=== PATIENT | female | born 1950 | race Caucasian/White ===

== ENCOUNTER 2020-10-15 13:53 | Inpatient (IN) ==
--- OUTSIDE RECORDS SUMMARY | 2020-10-15 13:55 | External Medical Summary | Continuity of Care Document ---
:1950 Author Name Ann MSerenity Address Unavailable Unavailable , Care Team Providers Name Role Phone Unavailable Unavailable Unavailable Madison ALLEN Unavailable Unavailable Assessments Assessed Problems:Encounter for preventive health examinationDyslipidemia CataractVenous insufficiencySpecial screening for malignant neoplasm of colon Postmenopausal statusRisk and functional assessment Problems Venous insufficiency (459.81) (I87.2) Risk and functional assessment (V82.9) (Z13.9) Postmenopausal status (V49.81) (Z78.0) Special screening for malignant neoplasm of colon (V76.51) ( Z12.11) Cataract (366.9) (H26.9) Dyslipidemia (272.4) (E78.5) Allergies and Adverse Reactions methohexital (Allergy) pentazocine (Allergy) Talwin SOLN (Allergy) Medications Biotin 1000 MCG Oral Tablet; TAKE DIRECTED. , M.D. Refills: 0 Vitamin D3 50 MCG (2000 UT) Oral Capsule; TAKE 1 CAPSULE Geno ly , M.D. Refills: 0 Probiotic Oral Capsule; USE DIRECTED. , M.D. Refills: 0 Paulina 3 1200 MG Oral Capsule; TAKE DIRECTED. , M.D. Refills: 0 Exarmnfrfsm-Jytujydqamh-Juy C 5262-8969-73 MG/30ML Oral Liqu id , M.D. Refills: 0 CVS Vitamin D 2000 UNIT CAPS; TAKE 1 CAPSULE Daily , M.D. Refills: 0 Procedures Procedures not documented Immunizations Immunizations not documented Family History Unknown Family Member No pertinent family history (V49.89) (Z78.9) Status: Active Comments: Family History Plan of Treatment Planned Observations Planned Goals not documented Results No Known Results Results not documented
--- OUTSIDE RECORDS SUMMARY | 2020-10-15 13:55 | External Medical Summary | Continuity of Care Document ---
:1950 Author Name Ann MSerenity Address Unavailable Unavailable , Care Team Providers Name Role Phone Unavailable Unavailable Unavailable Madison ALLEN Unavailable Unavailable Assessments Assessed Problems:Encounter for preventive health examinationDyslipidemia CataractVenous insufficiencySpecial screening for malignant neoplasm of colon Postmenopausal statusRisk and functional assessment Problems Dyslipidemia (272.4) (E78.5) Cataract (366.9) (H26.9) Special screening for malignant neoplasm of colon (V76.51) ( Z12.11) Postmenopausal status (V49.81) (Z78.0) Risk and functional assessment (V82.9) (Z13.9) Venous insufficiency (459.81) (I87.2) Allergies and Adverse Reactions methohexital (Allergy) pentazocine (Allergy) Talwin SOLN (Allergy) Medications Biotin 1000 MCG Oral Tablet; TAKE DIRECTED. , M.D. Refills: 0 Vitamin D3 50 MCG (2000 UT) Oral Capsule; TAKE 1 CAPSULE Geno ly , M.D. Refills: 0 Probiotic Oral Capsule; USE DIRECTED. , M.D. Refills: 0 Weldon 3 1200 MG Oral Capsule; TAKE DIRECTED. , M.D. Refills: 0 Civcwpwkwwk-Xfcfidbghkh-Tka C 4895-7875-49 MG/30ML Oral Liqu id , M.D. Refills: [...]
[2020-10-15] MEDS ORDERED: SODIUM CHLORIDE 0.9% 500 ML IV SCH (14:00)
[2020-10-15] MEDS ORDERED: SODIUM CHLORIDE 0.9% 1000ML 1,000 ML IV SCH (14:00)
--- NOTE | 2020-10-15 14:08 | Emergency Department Note ---
Impression & Plan Hyperglycemia, Hypokalemia, Acute UTI (urinary tract infection), SOB (shortness of breath), Elevated d-dimer ED Provider Note INFORMANT: Patient ED PROVIDER(S): Renato Muñoz MD CHIEF COMPLAINT: Hyperglycemia PLAN: Disposition: Admitted Condition: Good Outpatient prescription management: none Referral: None MEDICAL DECISION MAKING: Patient presented complaining of hyperglycemia. She also noted shortness of breath. Her ECG showed a normal sinus rhythm. Chest x-ray was unremarkable. Patient had an unremarkable CBC but chemistry panel did reveal hyperglycemia and hypokalemia. She had a urinalysis performed and there was concerns for UTI. The patient was treated with IV Rocephin. She was given oral potassium. The patient was hydrated as well. She was given IV insulin. The patient does not have insulin treatment at home. The patient had a D-dimer performed and it was very elevated. She underwent CT imaging which did not reveal any evidence of acute intrathoracic pathology including pulmonary embolism. Given the findings I discussed further management in the hospital. I [facility] the [facility] The patient will be admitted for further management. Triage Nursing notes reviewed and agree them. Vital Signs: reviewed and remarkable for tachycardia Differential diagnosis: Infection, dehydration, metabolic abnormality, hypo/hyperglycemia, electrolyte disturbance, anemia, hypoxia, cardiac sources, intracerebral event, toxicologic, neurologic, as well as other pathologies. Diagnostics interpreted by me: ECG: Twelve-lead ECG reveals a normal sinus rhythm at 90 bpm. Left atrial enlargement. Poor R wave progression. No ST elevation or depression. Unspecific ST. Normal axis and QRS. Cardiac Monitoring:Cardiac monitoring ordered by me: The patient was placed on continuous cardiac monitoring and observed. It revealed a sinus tachycardia rhythm at 104 beats per minute without ectopy or evidence of dysrhythmia. Imaging studies: Chest x-ray. Findings: A chest x-ray was performed and revealed no pneumothorax, effusion, infiltrate, pulmonary edema, free air under the diaphragm, or wide mediastinum. Impression: No acute disease. CT PE study did not reveal any evidence of pulmonary embolism or acute pathology. I refer you to the EMR for further details. Consultation(s): [facility] service HPI: The patient is a 70 year old female who presents to the Emergency Room with complaints of hyperglycemia. This started a few days ago and is worsening. BSG was 428 before coming to the ED. The patient also notes the following associated symptoms, fevers, dark urine, SOB. The patient has tylenol relieving factors. Current pain is rated as 0/10. Pt had Covid Dec . Pt denies LOC, headache, diaphoresis, visual changes, neck pain, chest pain, nausea, vomiting, abdominal pain, back pain, melena, hematochezia, numbness, weakness, lymphadenopathy, rash, or other complaints. ROS: See above HPI for pertinent positives & negatives. A total of 10 systems reviewed and were otherwise negative. PAST MEDICAL HISTORY:See Below , COVID, DM PAST SURGICAL HISTORY:See Below, FAMILY HISTORY:See Below SOCIAL HISTORY:See Below, No tobacco HOME MEDICATIONS:See Below ALLERGIES:See Below VITALS:See Below PHYSICAL EXAMINATION: GENERAL: Awake, alert, uncomfortable-appearing, in no distress HENT: Normocephalic, atraumatic. Oropharynx unremarkable. EYES: Normal conjunctiva. Sclera non-icteric. NECK: Inspection normal. Non-tender. Supple. No nuchal rigidity. FROM. No masses. RESPIRATORY: Clear to auscultation. No wheezes. No rales. Normal respiratory effort. CARDIAC: Borderline rate. Normal rhythm. No murmurs. No rubs. Extremities warm and well perfused. Pulses equal. No JVD. GI: Soft, non-distended. No tenderness to palpation. No rebound or guarding. No masses. RECTAL: Deferred. MUSCULOSKELETAL: Atraumatic. Chest examination reveals no tenderness. The back is symmetrical on inspection without obvious abnormality. There is no CVA tenderness to palpation. No joint edema. LOWER EXTREMITIES: Calves are equal size bilaterally and non-tender. No edema. No discoloration. NEURO: Normal sensorium. No sensory or motor deficits noted. SKIN: No rash or jaundice noted. Renato Muñoz MD Past Med/Surg History Social History Smoking Status: Former smoker Feels Safe at Home: Yes Allergies Allergies Allergy/AdvReac Type Severity Reaction Status Date / Time aspirin Allergy Severe HALLUCINATI Unverified 10/15/20 14:56 ONS naloxone Allergy Severe HALLUCINATI Verified 10/15/20 14:56 ONS pentazocine Allergy Severe HEADACHE Unverified 10/15/20 14:56 SODIUM BREVATOL Allergy Intermediate MIGRAINES Uncoded 10/15/20 14:56 AND VISUAL DISTURBANCES Home Meds Home Medications Medication Instructions Recorded Confirmed acetaminophen [Tylenol Extra 500 mg PO Q6H PRN 10/15/20 10/15/20 Strength] atorvastatin 20 mg PO HS 10/15/20 10/15/20 cholecalciferol (vitamin D3) 50 mcg PO DAILY 10/15/20 10/15/20 famotidine 20 mg PO DAILY 10/15/20 10/15/20 ibuprofen [Advil] 400 mg PO Q6H PRN 10/15/20 10/15/20 magnesium oxide 400 mg PO DAILY PRN 10/15/20 10/15/20 metformin 500 mg PO BID 10/15/20 10/15/20 metoprolol succinate 25 mg PO DAILY 10/15/20 10/15/20 zqydkejr-iic-uupb-FA-lutein 1 tab PO DAILY 10/15/20 10/15/20 [Centrum Silver Women] Results & Data (ED) Vital Signs Vital Signs - 24 hr 10/15/20 13:56 10/15/20 14:24 10/15/20 14:32 Temperature 36.6 C Temperature Source Temporal Artery Scan Pulse Rate 97 H 95 H 94 H Pulse Rate from SpO2 Sensor 94 H Respiratory Rate 20 20 19 Blood Pressure 148/86 H 148/83 H Blood Pressure Mean 106 104 Pulse Oximetry 95 95 94 Oxygen Delivery Method Room Air Room Air Sepsis Recent Fever Within 48 Hours Yes Sepsis New/Unexplained Change in Mental Status No Sepsis Action Taken by Nursing No Action Required 10/15/20 14:39 10/15/20 15:00 10/15/20 15:01 Temperature Temperature Source Pulse Rate 93 H 92 H 93 H Pulse Rate from SpO2 Sensor 95 H 91 H 92 H Respiratory Rate 19 20 20 Blood Pressure 150/88 H Blood Pressure Mean 108 Pulse Oximetry 96 95 96 Oxygen Delivery Method Sepsis Recent Fever Within 48 Hours Sepsis New/Unexplained Change in Mental Status Sepsis Action Taken by Nursing 10/15/20 15:31 10/15/20 16:00 10/15/20 16:30 Temperature Temperature Source Pulse Rate Pulse Rate from SpO2 Sensor 96 H 88 91 H Respiratory Rate Blood Pressure Blood Pressure Mean Pulse Oximetry 94 94 93 Oxygen Delivery Method Sepsis Recent Fever Within 48 Hours Sepsis New/Unexplained Change in Mental Status Sepsis Action Taken by Nursing 10/15/20 17:00 10/15/20 17:01 10/15/20 17:30 Temperature Temperature Source Pulse Rate 94 H 91 H 96 H Pulse Rate from SpO2 Sensor 96 H Respiratory Rate 20 20 28 H Blood Pressure 152/91 H 145/89 H Blood Pressure Mean 111 107 Pulse Oximetry 93 Oxygen Delivery Method Sepsis Recent Fever Within 48 Hours Sepsis New/Unexplained Change in Mental Status Sepsis Action Taken by Nursing 10/15/20 18:00 10/15/20 18:01 10/15/20 18:30 Temperature Temperature Source Pulse Rate 99 H 97 H 101 H Pulse Rate from SpO2 Sensor 97 H 96 H 97 H Respiratory Rate 20 20 24 Blood Pressure 138/83 145/68 H Blood Pressure Mean 101 93 Pulse Oximetry 96 96 95 Oxygen Delivery Method Sepsis Recent Fever Within 48 Hours Sepsis New/Unexplained Change in Mental Status Sepsis Action Taken by Nursing 10/15/20 18:31 Temperature Temperature Source Pulse Rate 104 H Pulse Rate from SpO2 Sensor 103 H Respiratory Rate 24 Blood Pressure Blood Pressure Mean Pulse Oximetry 97 Oxygen Delivery Method Sepsis Recent Fever Within 48 Hours Sepsis New/Unexplained Change in Mental Status Sepsis Action Taken by Nursing Laboratory Data Result diagrams: 10/15/20 14:23 10/15/20 14:23 Lab Results 10/15/20 10/15/20 10/15/20 Range/Units 14:23 14:23 14:25 WBC 9.08 (4.8-10.8) K/uL RBC 4.40 (4.2-5.4) M/uL Hgb 12.9 (12.0-16.0) g/dL Hct 36.6 L (37-47) % MCV 83.2 (80-100) fL MCH 29.3 (25-34) pg MCHC 35.2 (32-36) g/dL RDW Std Deviation 40.3 (36.4-46.3) fL RDW Coeff of Negrita 13.3 (11.5-14.5) % Plt Count 145 (130-400) K/uL MPV 11.1 H (7.4-10.4) fL Immature Gran % (Auto) 0.3 % Neut % (Auto) 85.8 % Lymph % (Auto) 9.4 % [place] % (Auto) 4.0 % Eos % (Auto) 0.4 % Baso % (Auto) 0.1 % Neut # (Auto) 7.79 H (1.4-6.5) K/uL Lymph # (Auto) 0.85 L (1.2-3.4) K/uL [place] # (Auto) 0.36 (0.11-0.59) K/uL Eos # (Auto) 0.04 (0-0.5) K/uL Baso # (Auto) 0.01 (0-0.2) K/uL Immature Gran # (Auto) 0.03 H (0.00-0.02) K/uL D-Dimer 3950 H* (0-500) ug/L FEU Sodium 132 L (136-145) mmol/L Potassium 3.1 L (3.5-5.1) mmol/L Chloride 95 L (98-107) mmol/L Carbon Dioxide 29 (21-32) mmol/L Anion Gap 8.0 (3-11) BUN 37 H (7-18) mg/dl Creatinine 1.34 H (0.6-1.2) mg/dl Est Cr Clr Drug Dosing 40.8 ml/min Est GFR ( Amer) 46.1 Est GFR (Non-Af Amer) 39.8 BUN/Creatinine Ratio 27.7 H (10-20) Glucose 334 H* (70-99) mg/dl POC Glucose (70-99) mg/dl Calcium 8.8 (8.5-10.1) mg/dl Magnesium 2.2 (1.8-2.4) mg/dl Total Bilirubin 1.5 H (0.2-1) mg/dl AST 40 H (15-37) U/L ALT 55 (12-78) U/L Alkaline Phosphatase 121 H (45-117) U/L Total Creatine Kinase 50 (26-192) U/L Troponin I < 0.015 (0-0.045) ng/ml Total Protein 7.6 (6.4-8.2) gm/dl Albumin 2.8 L (3.4-5.0) gm/dl Globulin 4.8 H (2.5-4.0) gm/dl Albumin/Globulin Ratio 0.6 L (0.9-2) Beta-Hydroxybutyric Acd (0.2-2.81) mg/dl TSH 1.140 (0.300-4.500) uIu/ml Specimen Hemolysis Urine Color Urine Appearance (Clear) Urine pH (4.5-7.5) Ur Specific [place] (1.000-1.030) Urine Protein (Negative) Urine Glucose (UA) (Negative) Urine Ketones (Negative) Urine Blood (Negative) Urine Nitrite (Negative) Urine Bilirubin (Negative) Urine Urobilinogen (Negative) Ur Leukocyte Esterase (Negative) Urine WBC (Auto) (0-5) /hpf Urine RBC (Auto) (0-4) /hpf U Hyaline Cast (Auto) (0-5) /lpf U Epithel Cells (Auto) (0-5) /lpf Urine Bacteria (Auto) (Negative) COVID-19 Eval Order SARS-CoV-2, RNA, NAAT (NEGATIVE) 10/15/20 10/15/20 10/15/20 Range/Units 14:25 16:13 17:48 WBC (4.8-10.8) K/uL RBC (4.2-5.4) M/uL Hgb (12.0-16.0) g/dL Hct (37-47) % MCV (80-100) fL MCH (25-34) pg MCHC (32-36) g/dL RDW Std Deviation (36.4-46.3) fL RDW Coeff of Negrita (11.5-14.5) % Plt Count (130-400) K/uL MPV (7.4-10.4) fL Immature Gran % (Auto) % Neut % (Auto) % Lymph % (Auto) % [place] % (Auto) % Eos % (Auto) % Baso % (Auto) % Neut # (Auto) (1.4-6.5) K/uL Lymph # (Auto) (1.2-3.4) K/uL [place] # (Auto) (0.11-0.59) K/uL Eos # (Auto) (0-0.5) K/uL Baso # (Auto) (0-0.2) K/uL Immature Gran # (Auto) (0.00-0.02) K/uL D-Dimer (0-500) ug/L FEU Sodium (136-145) mmol/L Potassium (3.5-5.1) mmol/L Chloride (98-107) mmol/L Carbon Dioxide (21-32) mmol/L Anion Gap (3-11) BUN (7-18) mg/dl Creatinine (0.6-1.2) mg/dl Est Cr Clr Drug Dosing ml/min Est GFR ( Amer) Est GFR (Non-Af Amer) BUN/Creatinine Ratio (10-20) Glucose (70-99) mg/dl POC Glucose 281 H (70-99) mg/dl Calcium (8.5-10.1) mg/dl Magnesium (1.8-2.4) mg/dl Total Bilirubin (0.2-1) mg/dl AST (15-37) U/L ALT (12-78) U/L Alkaline Phosphatase (45-117) U/L Total Creatine Kinase (26-192) U/L Troponin I (0-0.045) ng/ml Total Protein (6.4-8.2) gm/dl Albumin (3.4-5.0) gm/dl Globulin (2.5-4.0) gm/dl Albumin/Globulin Ratio (0.9-2) Beta-Hydroxybutyric Acd 2.00 (0.2-2.81) mg/dl TSH (0.300-4.500) uIu/ml Specimen Hemolysis Urine Color [place] Urine Appearance Cloudy A (Clear) Urine pH 5.0 (4.5-7.5) Ur Specific [place] 1.016 (1.000-1.030) Urine Protein 2+ H (Negative) Urine Glucose (UA) 1+ H (Negative) Urine Ketones Negative (Negative) Urine Blood 3+ H (Negative) Urine Nitrite Negative (Negative) Urine Bilirubin 1+ H (Negative) Urine Urobilinogen Negative (Negative) Ur Leukocyte Esterase 2+ H (Negative) Urine WBC (Auto) >30 H (0-5) /hpf Urine RBC (Auto) >30 H (0-4) /hpf U Hyaline Cast (Auto) 1-5 (0-5) /lpf U Epithel Cells (Auto) 10-20 H (0-5) /lpf Urine Bacteria (Auto) 1+ H (Negative) COVID-19 Eval Order SARS-CoV-2, RNA, NAAT (NEGATIVE) 10/15/20 10/15/20 10/15/20 Range/Units 18:44 18:44 18:46 WBC (4.8-10.8) K/uL RBC (4.2-5.4) M/uL Hgb (12.0-16.0) g/dL Hct (37-47) % MCV (80-100) fL MCH (25-34) pg MCHC (32-36) g/dL RDW Std Deviation (36.4-46.3) fL RDW Coeff of Negrita (11.5-14.5) % Plt Count (130-400) K/uL MPV (7.4-10.4) fL Immature Gran % (Auto) % Neut % (Auto) % Lymph % (Auto) % [place] % (Auto) % Eos % (Auto) % Baso % (Auto) % Neut # (Auto) (1.4-6.5) K/uL Lymph # (Auto) (1.2-3.4) K/uL [place] # (Auto) (0.11-0.59) K/uL Eos # (Auto) (0-0.5) K/uL Baso # (Auto) (0-0.2) K/uL Immature Gran # (Auto) (0.00-0.02) K/uL D-Dimer (0-500) ug/L FEU Sodium (136-145) mmol/L Potassium (3.5-5.1) mmol/L Chloride (98-107) mmol/L Carbon Dioxide (21-32) mmol/L Anion Gap (3-11) BUN (7-18) mg/dl Creatinine (0.6-1.2) mg/dl Est Cr Clr Drug Dosing ml/min Est GFR ( Amer) Est GFR (Non-Af Amer) BUN/Creatinine Ratio (10-20) Glucose (70-99) mg/dl POC Glucose 228 H (70-99) mg/dl Calcium (8.5-10.1) mg/dl Magnesium (1.8-2.4) mg/dl Total Bilirubin (0.2-1) mg/dl AST (15-37) U/L ALT (12-78) U/L Alkaline Phosphatase (45-117) U/L Total Creatine Kinase (26-192) U/L Troponin I (0-0.045) ng/ml Total Protein (6.4-8.2) gm/dl Albumin (3.4-5.0) gm/dl Globulin (2.5-4.0) gm/dl Albumin/Globulin Ratio (0.9-2) Beta-Hydroxybutyric Acd (0.2-2.81) mg/dl TSH (0.300-4.500) uIu/ml Specimen Hemolysis Urine Color Urine Appearance (Clear) Urine pH (4.5-7.5) Ur Specific [place] (1.000-1.030) Urine Protein (Negative) Urine Glucose (UA) (Negative) Urine Ketones (Negative) Urine Blood (Negative) Urine Nitrite (Negative) Urine Bilirubin (Negative) Urine Urobilinogen (Negative) Ur Leukocyte Esterase (Negative) Urine WBC (Auto) (0-5) /hpf Urine RBC (Auto) (0-4) /hpf U Hyaline Cast (Auto) (0-5) /lpf U Epithel Cells (Auto) (0-5) /lpf Urine Bacteria (Auto) (Negative) COVID-19 [facility] SARS-[facility]-2, RNA, NAAT NEGATIVE (NEGATIVE) Administered Medications Sodium Chloride (Nss 1000ml) 1,000 mls @ 125 mls/hr IV .Q8H GELA Stop: 10/15/20 21:59 Last Admin: 10/15/20 14:24 Dose: 125 mls/hr Documented by: [id number] Discontinued Medications Sodium Chloride (Nss) 500 mls @ 999 mls/hr IV .Q31M GELA Stop: 10/15/20 14:30 Last Infusion: 10/15/20 15:16 Dose: 0 mls/hr Documented by: [id number] Admin: 10/15/20 14:24 Dose: 999 mls/hr Documented by: [id number] Ceftriaxone Sodium (Rocephin) 2,000 mg in 70 mls @ 140 mls/hr IV NOW STA Stop: 10/15/20 15:40 Last Infusion: 10/15/20 17:37 Dose: 0 mls/hr Documented by: [id number] Admin: 10/15/20 15:31 Dose: 140 mls/hr Documented by: [id number] Insulin Human Regular (Novolin-R Insulin Per Unit Charge) 6 units IV NOW STA Stop: 10/15/20 17:13 Last Admin: 10/15/20 17:49 Dose: 6 units Documented by: [id number] Cosigned by: [id number] Ioversol (Optiray 320 125ml) 120 ml IV ONCE ONE Stop: 10/15/20 16:52 Last Admin: 10/15/20 16:52 Dose: 120 ml Documented by: [id number] Potassium Chloride (Potassium Chloride Crtab 20 Meq Tabcr) 40 meq PO NOW STA Stop: 10/15/20 17:13 Last Admin: 10/15/20 17:49 Dose: 40 meq Documented by: [id number] Potassium Chloride (Potassium Chloride Crtab 20 Meq Tabcr) 40 meq PO NOW STA Stop: 10/15/20 19:02 Last Admin: 10/15/20 19:17 Dose: Not Given Documented by: [id number] Discharge Plan Visit Data Chief Complaint: Hyperglycemia Stated Complaint: ELEVATED BLOODSUGAR ED Provider: Renato Muñoz Discharge Problem: Hyperglycemia, Hypokalemia, Acute UTI (urinary tract infection), SOB (shortness of breath), Elevated d-dimer Discharge Instructions Interventions: ED Discharge Assessment Last Done: 10/15/20 19:37 Forms Stand Alone Forms: [facility] Prescriptions Prescriptions: No Action metoprolol succinate 25 mg tablet extended release 24 hr 25 mg PO DAILY RF: 0 metformin 500 mg tablet 500 mg PO BID RF: 0 atorvastatin 20 mg tablet 20 mg PO HS RF: 0 acetaminophen [Tylenol Extra Strength] 500 mg Tablet 500 mg PO Q6H PRN (Reason: Fever Or Pain) RF: 0 famotidine 20 mg tablet 20 mg PO DAILY RF: 0 magnesium oxide 400 mg (241.3 mg magnesium) Tablet 400 mg PO DAILY PRN (Reason: Unknown) RF: 0 ibuprofen [Advil] 200 mg Tablet 400 mg PO Q6H PRN (Reason: Fever Or Pain) RF: 0 cholecalciferol (vitamin D3) 50 mcg (2,000 unit) Tablet 50 mcg PO DAILY RF: 0 Centrum Silver Women 8 mg iron-400 mcg-300 mcg Tablet 1 tab PO DAILY RF: 0 glucosamine sulfate [Glucosamine] 500 mg Tablet 500 mg PO BID RF: 0 Referrals Referrals: Ismael Warner DO [Primary Care Provider] -
--- NOTE | 2020-10-15 14:20 | XRay Report ---
SINGLE VIEW CHEST CLINICAL HISTORY: Dyspnea. FINDINGS: An AP, portable, upright chest radiograph is obtained. No prior studies are available for c omparison at the time of dictation. The cardiomediastinal silhouette is unremarkable noting atherosc lerotic calcification of the thoracic aorta. There is bibasilar scarring/atelectasis. No airspace con solidation or large pleural effusion is identified. No pneumothorax is seen. The skeletal structures are osteopenic. The bony thorax is grossly intact. Degenerative change and widening is seen at the le ft acromioclavicular joint. IMPRESSION: No acute cardiopulmonary abnormality. ACT 112: Negative or not required by law. Electronically signed by: Rios Gutierrez M.D. 10/15/2020 2:19 PM
[2020-10-15 14:47] LABS: Basophils # (auto) 0.01 K/uL (0-0.2); Basophils % (auto) 0.1 %; Eosinophils # (auto) 0.04 K/uL (0-0.5); Eosinophils % (auto) 0.4 %; Hematocrit (blood only) 36.6 % (37-47); Hemoglobin 12.9 g/dL (12.0-16.0); Immature Granulocytes # (auto) 0.03 K/uL (0.00-0.02); Immature Granulocytes % (auto) 0.3 %; Lymphocytes # (auto) 0.85 K/uL (1.2-3.4); Lymphocytes % (auto) 9.4 %; Mean Corpuscular Hemoglobin 29.3 pg (25-34); Mean Corpuscular Hgb Conc 35.2 g/dL (32-36); Mean Corpuscular Volume 83.2 fL (80-100); Mean Platelet Volume 11.1 fL (7.4-10.4); Monocytes # (auto) 0.36 K/uL (0.11-0.59); Neutrophils # (auto) 7.79 K/uL (1.4-6.5); Neutrophils % (auto) 85.8 %; Platelet Count 145 K/uL (130-400); RDW Coefficient of Variation 13.3 % (11.5-14.5); RDW Standard Deviation 40.3 fL (36.4-46.3); White Blood Count 9.08 K/uL (4.8-10.8)
[2020-10-15 15:01] LABS: Appearance Urine Cloudy (Clear); Bacteria Urine Automated 1+ (Negative); Blood Urine 3+ (Negative); Color Urine Orange; Glucose Urine UA 1+ (Negative); Ketones Urine Negative (Negative); Leukocyte Esterase Urine 2+ (Negative); Nitrite Urine Negative (Negative); Protein Urine 2+ (Negative); RBC Urine Automated >30 /hpf (0-4); Specific Gravity Urine 1.016 (1.000-1.030); Urobilinogen Urine Negative (Negative); WBC Urine Automated >30 /hpf (0-5)
[2020-10-15 15:03] LABS: Bilirubin Urine 1+ (Negative); D Dimer 3950 ug/L FEU (0-500)
[2020-10-15] MEDS ORDERED: cefTRIAXone SODIUM 2,000 MG/70 ML BAG IV STA (15:11)
[2020-10-15 15:20] LABS: Alanine Aminotransferase 55 U/L (12-78); Albumin Level 2.8 gm/dl (3.4-5.0); Aspartate Aminotransferase 40 U/L (15-37); BUN Creatinine Ratio 27.7 (10-20); Blood Urea Nitrogen 37 mg/dl (7-18); Calcium 8.8 mg/dl (8.5-10.1); Carbon Dioxide 29 mmol/L (21-32); Chloride 95 mmol/L (98-107); Creatinine Clr Calc Pharmacy 40.8 ml/min; Est GFR (African American) 46.1; Est GFR (Non-African American) 39.8; Glucose 334 mg/dl (70-99); Magnesium 2.2 mg/dl (1.8-2.4); Potassium 3.1 mmol/L (3.5-5.1); Sodium 132 mmol/L (136-145)
[2020-10-15 15:24] LABS: Albumin Globulin Ratio 0.6 (0.9-2); Alkaline Phosphatase 121 U/L (45-117); Bilirubin,Total 1.5 mg/dl (0.2-1); Creatine Kinase 50 U/L (26-192); Globulin 4.8 gm/dl (2.5-4.0); Total Protein 7.6 gm/dl (6.4-8.2); Troponin I < 0.015 ng/ml (0-0.045)
[2020-10-15] MEDS ORDERED: OPTIRAY 320 125ml IV ONE (16:51)
[2020-10-15] MEDS ORDERED: POTASSIUM CHLORIDE CRTAB 20 MEQ TABCR PO STA ×2 (17:12→19:01)
[2020-10-15] MEDS ORDERED: NovoLIN-R INSULIN PER UNIT CHARGE IV STA (17:12)
--- NOTE | 2020-10-15 17:24 | CT Scan Report ---
CT ANGIOGRAM OF THE CHEST CLINICAL HISTORY: Cough and dyspnea of several months duration. History of Covid in August 2020. COMPARISON STUDY: Chest x-ray dated 10/15/2020. TECHNIQUE: Following the IV administration of 120 cc of Optiray 320, CT angiogram of the chest was pe rformed from the upper abdomen to the thoracic inlet utilizing the pulmonary embolus protocol. Images are reviewed in the axial, sagittal, and coronal planes. 3-D MIPS images are created and assessed. I V contrast was administered without complication. A dose lowering technique was utilized adhering to the principles of ALARA. CT DOSE: 427.67 mGy.cm FINDINGS: Thyroid: Imaged portions of the thyroid gland are normal in size and attenuation. Thoracic aorta: The thoracic aorta is normal in caliber and demonstrates standard 3-vessel arch anato my. No dissection is seen. Pulmonary vasculature: The pulmonary trunk is normal in caliber. There are no filling defects identif ied in main, lobar, or segmental pulmonary branches to suggest pulmonary embolus. Heart: The heart is normal in size and without pericardial effusion. Lungs and pleural spaces: Evaluation of the lung parenchyma is modestly degraded by motion artifact. The trachea and central airways are clear. There are trace pleural effusions. Foci of subpleural pare nchymal scarring and atelectasis are present at both lung bases. There is no airspace consolidation t ypical for pneumonia. Tiny blebs are noted at the right apex. Mild diffuse peribronchial thickening i s noted. Mediastinum: There is no mediastinal lymphadenopathy. Feli: Clear. Axillae: There is no axillary lymphadenopathy. Upper abdomen: There is a moderate to large hiatal hernia. The liver appears steatotic. Skeletal structures: The skeletal structures are osteopenic. Degenerative change and mild hyperkyphos is is noted in the thoracic spine. No lytic or blastic bony lesions are seen. IMPRESSION: 1. There is no evidence of pulmonary embolus in the main, lobar, or segmental pulmonary arteries. 2. There is no airspace consolidation typical for pneumonia. 3. Foci of subpleural parenchymal scarring and atelectasis are seen at the lung bases. This may repre sent post infectious/inflammatory change. Consider nonemergent pulmonology follow-up. 4. Trace pleural effusions. 5. Mild diffuse peribronchial thickening suggests bronchitis/reactive airway disease. 6. Moderate to large hiatal hernia. 7. Additional findings as above. ACT 112: Negative or not required by law. Electronically signed by: Rios Gutierrez M.D. 10/15/2020 5:22 PM
[2020-10-15] MEDS ORDERED: INSULIN PROTOCOL GOAL RANGE ONE (19:01)
[2020-10-15] MEDS ORDERED: INSULIN REGULAR 250 UNITS in SODIUM CHLORIDE 0.9% 247.5 ML IV SCH (19:01)
[2020-10-15] MEDS ORDERED: MODERATE STRESS LEVEL ONE (19:01)
[2020-10-15] MEDS ORDERED: PHARMACY GLYCEMIC MGMT CONSULT STA (19:01)
--- NOTE | 2020-10-15 19:35 | XRay Report ---
KUB CLINICAL HISTORY: Flank pain. FINDINGS: 2 AP supine abdominal radiographs are obtained. No prior studies are available for comparis on at the time of dictation. Cholecystectomy clips are seen in the right upper quadrant. There is no bowel obstruction. Excreted IV contrast fills the renal collecting systems and bladder. There is no e vidence of hydronephrosis. The skeletal structures are osteopenic and appear intact. Spondylotic mares ges noted in the lumbar spine. IMPRESSION: 1. Excreted IV contrast fills the renal collecting systems and bladder. The presence of renal calculi cannot be assessed. 2. There is no evidence of hydronephrosis. 3. Nonobstructed bowel gas pattern. Electronically signed by: Rios Gutierrez M.D. 10/15/2020 7:34 PM
--- NOTE | 2020-10-15 20:02 | History & Physical Report ---
Date of Service October 15, 2020 Assessment & Plan (1) JAMES (acute kidney injury): -Creatinine 1.3 -Baseline ~0.7 -Likely prerenal in nature secondary to UTI and hyperglycemia -Checking KUB and renal US for stone for possible obstructive cause (2) DM type 2 (diabetes mellitus, type 2): -Glucose 334 -No signs of DKA -Received 6 units IV insulin in the ED with improvement of glucose of 228 -Acute hyperglycemia likely secondary to UTI -Hgb A1c 6.9 05/2020 -On Metformin at home -Glycemic consult (3) HTN (hypertension): -BP controlled, continue metoprolol (4) KELLI (obstructive sleep apnea): -CPAP as per home settings (5) DVT prophylaxis: -SQ heparin History of Present Illness Chief Complaint: Hyperglycemia, fever Primary Care Provider: Ismael Warner DO 70-year-old female with PMH DM type II, KELLI on CPAP, HTN, and other problems listed below who presents to the ED for evaluation of hyperglycemia and fever. Patient reports over the past few days, her blood sugars have been running over 400 which are very unusual for her. She also reports having a fever for the past few days as well, reports a temperature of 101 today. About 1 week ago, patient reports right lower quadrant abdominal pain that wraps around to her back. She reports she took 1 dose of Tylenol which resolved the pain and it has not returned. She notes her urine has been darker in color however denies any dysuria or hematuria. She reports she has been very thirsty. She reports a poor appetite however no nausea, vomiting, abdominal pain, diarrhea. Denies chest pain shortness of breath. No lightheadedness, dizziness, diaphoresis, syncopal events. In the ED, glucose is 334 without signs of DKA. UA suggest UTI. D-dimer was elevated however CTA chest was negative for PE. Patient was given IV ceftriaxone, 6 units IV insulin, p.o. potassium, IVF. Allergies Allergy/AdvReac Type Severity Reaction Status Date / Time aspirin Allergy Severe HALLUCINATI Unverified 10/15/20 14:56 ONS naloxone Allergy Severe HALLUCINATI Verified 10/15/20 14:56 ONS pentazocine Allergy Severe HEADACHE Unverified 10/15/20 14:56 SODIUM BREVATOL Allergy Intermediate MIGRAINES Uncoded 10/15/20 14:56 AND VISUAL DISTURBANCES Home Medications Medication Instructions Recorded Confirmed Type Centrum Silver Women 1 tab PO DAILY 10/15/20 10/15/20 History acetaminophen [Tylenol Extra 500 mg PO Q6H PRN 10/15/20 10/15/20 History Strength] atorvastatin 20 mg PO HS 10/15/20 10/15/20 History cholecalciferol (vitamin D3) 50 mcg PO DAILY 10/15/20 10/15/20 History famotidine 20 mg PO DAILY 10/15/20 10/15/20 History ibuprofen [Advil] 400 mg PO Q6H PRN 10/15/20 10/15/20 History magnesium oxide 400 mg PO DAILY PRN 10/15/20 10/15/20 History metoprolol succinate 25 mg PO DAILY 10/15/20 10/15/20 History metformin 1,000 mg PO BID 30 Days #120 tab 10/18/20 Rx potassium chloride 10 meq PO DAILY #30 cap 10/18/20 Rx Past Med/Surg History Medical History DM type 2 (diabetes mellitus, type 2) GERD (gastroesophageal reflux disease) HTN (hypertension) KELLI (obstructive sleep apnea) RLS (restless legs syndrome) Surgical History History of hysterectomy for benign disease Hx of cholecystectomy Family History Father Diabetes Mother Diabetes Social History Smoking Status: Never smoker Hx Alcohol Use: No Hx Substance Use: No Preferred Language: French Communication Ability: Effective Mineral Mixer Required: No Beliefs That Will Affect Care: None Current Living Situation: Spouse Feels Safe at Home: Yes Safety Concerns: Feels Safe At This Time Assistive Devices: None Review of Systems Review of Systems: ROS per HPI, all other systems reviewed and negative Physical Exam Constitutional: WD/WN, vitals as above Eyes: PERRL, conjunctivae normal, anicteric sclerae ENMT: external ear and nose normal, oropharynx normal Respiratory: normal respiratory effort, lungs clear to auscultation Cardiovascular: Rate/Rhythm: regular rate and + tachycardic Vessels: normal peripheral pulses Extremities: no edema Gastrointestinal (Abdomen): normal bowel sounds, soft, nontender, no hepatosplenomegaly Musculoskeletal: no cyanosis or clubbing, extremities motor strength 5/5 Skin: no rashes, warm and dry Neurologic: PERRL, EOMI, accommodation nl, no face palsy, no dysarthria Psychiatric: A+Ox3, euthymic affect Genitourinary: no CVA tenderness Results & Data Results & Data ([facility]) Vital Signs (Past 12 Hours) Vital Signs Temp Pulse Resp BP Pulse Ox 10/15/20 18:31 104 H 24 97 10/15/20 18:30 101 H 24 145/68 H 95 10/15/20 18:01 97 H 20 96 10/15/20 18:00 99 H 20 138/83 96 10/15/20 17:30 96 H 28 H 145/89 H 93 10/15/20 17:01 91 H 20 10/15/20 17:00 94 H 20 152/91 H 10/15/20 16:30 93 10/15/20 16:00 94 10/15/20 15:31 94 10/15/20 15:01 93 H 20 96 10/15/20 15:00 92 H 20 150/88 H 95 10/15/20 14:39 93 H 19 96 10/15/20 14:32 94 H 19 148/83 H 94 10/15/20 14:24 95 H 20 95 10/15/20 13:56 36.6 C 97 H 20 148/86 H 95 Laboratory Results Short CBC 10/15/20 Range/Units 14:23 WBC 9.08 (4.8-10.8) K/uL Hgb 12.9 (12.0-16.0) g/dL Hct 36.6 L (37-47) % Plt Count 145 (130-400) K/uL BMP 10/15/20 14:23 Sodium 132 L Potassium 3.1 L Chloride 95 L Carbon Dioxide 29 BUN 37 H Creatinine 1.34 H Glucose 334 H* Calcium 8.8 Cardiac Enzymes 10/15/20 Range/Units 14:23 Total Creatine Kinase 50 (26-192) U/L Troponin I < 0.015 (0-0.045) ng/ml Liver Function 10/15/20 Range/Units 14:23 Total Bilirubin 1.5 H (0.2-1) mg/dl AST 40 H (15-37) U/L ALT 55 (12-78) U/L Alkaline Phosphatase 121 H (45-117) U/L Albumin 2.8 L (3.4-5.0) gm/dl Urine 10/15/20 Range/Units 14:25 Urine Color [place] Urine Appearance Cloudy A (Clear) Urine pH 5.0 (4.5-7.5) Ur Specific [place] 1.016 (1.000-1.030) Urine Protein 2+ H (Negative) Urine Glucose (UA) 1+ H (Negative) Diagnostic Findings CXR IMPRESSION: No acute cardiopulmonary abnormality. CTA CHEST IMPRESSION: 1. There is no evidence of pulmonary embolus in the main, lobar, or segmental pulmonary arteries. 2. There is no airspace consolidation typical for pneumonia. 3. Foci of subpleural parenchymal scarring and atelectasis are seen at the lung bases. This may represent post infectious/inflammatory change. Consider nonemergent pulmonology follow-up. 4. Trace pleural effusions. 5. Mild diffuse peribronchial thickening suggests bronchitis/reactive airway disease. 6. Moderate to large hiatal hernia. 7. Additional findings as above. Code Status & VTE Plan VTE Prophylaxis Plan VTE Prophylaxis will be ordered: Yes Supervising Physician Co-Signing Physician Notes Pt was seen and examined. Agreed with Nancy LI exam, assessment and plan. 70-year-old female with PMH DM type II, KELLI on CPAP, HTN presents to the ED for evaluation of hyperglycemia and fever. Pt said that she has been having fever in the last few days. Pt said that last week she had right lower abdominal pain. She said that her pain improves. Pt said that her BS has been running in the 400's in the last few days. She said said that her urine is dark, but denies any dysuria or full smelling urine. She said that she has been having a poor appetite. Denies chest pain, palpitation, shortness of breath, lightheadedness, dizziness, diaphoresis, syncopal events. Lab showed elevated D-dimer. CTA chest was negative for PE. Received IVF, IV insulin and IV rocephin in the ER. Will continue IVF and IV abx with rocephin. Urine cx collected in the ER, will follow. Continue monitor BS. Will consult pharmacy for glycemic management. Will get a doppler of the LE and a renal u/s. Will continue monitor closely. MD Anca
--- NOTE | 2020-10-15 20:41 | Ultrasound Report ---
ULTRASOUND BILATERAL LOWER EXTREMITY VENOUS CLINICAL HISTORY: Elevated d-dimer. COMPARISON STUDY: No priors. TECHNIQUE: Real-time, grayscale, and color Doppler sonography of the deep veins of the right and left lower extremity was performed from the inguinal crease to the calf. Compression and augmentation wer e utilized. FINDINGS: There is no sonographic evidence of deep venous thrombosis identified in the right or left lower extremity. The common femoral, superficial femoral, and popliteal veins are patent and normally compressible bilaterally. The greater saphenous vein and the profunda femoris vein at the junction w ith the common femoral vein are clear in both legs. The visualized calf veins are patent bilaterally. IMPRESSION: There is no sonographic evidence of deep venous thrombosis identified in the right or lef t lower extremity. ACT 112: Negative or not required by law. Electronically signed by: Rios Gutierrez M.D. 10/15/2020 8:40 PM
--- NOTE | 2020-10-15 20:47 | Ultrasound Report ---
ULTRASOUND KIDNEYS AND BLADDER CLINICAL HISTORY: Flank pain. COMPARISON STUDY: Abdominal radiograph dated 10/15/2020. TECHNIQUE: Real-time, grayscale, and color flow sonography of the kidneys and bladder is performed. I mages are reviewed in the transverse and longitudinal planes. FINDINGS: Kidneys: The kidneys are normal in size and echotexture. The right kidney measures 13.4 cm in length and the left kidney measures 11.0 cm in length. There is mild fullness of the right ureter without hy dronephrosis. No shadowing renal calculi are identified. There is no sonographic evidence of contour deforming renal mass lesion. No perinephric fluid is identified. Bladder: The bladder is normal in appearance. Bilateral ureteral jets were seen. There is no signific ant post void residual. Upper abdomen: Survey images of the liver show evidence of hepatic steatosis. IMPRESSION: 1. The kidneys are normal in size. 2. There is mild fullness of the right ureter without hydronephrosis. 3. Both ureteral jets were identified. ACT 112: Negative or not required by law. Electronically signed by: Rios Gutierrez M.D. 10/15/2020 8:46 PM
[2020-10-15] MEDS ORDERED: INSULIN ASPART 100 UNITS/ML 3 ML PEN SC SCH (21:00)
[2020-10-15] MEDS ORDERED: GLUCAGON FOR INJ 1 MG VIAL IM PRN (21:45)
[2020-10-15] MEDS ORDERED: DEXTROSE 50% 50 ML SYRINGE IV PRN (21:45)
[2020-10-15] MEDS ORDERED: GLUCOSE 40% GEL 15 GM TUBE PO PRN (21:45)
[2020-10-15] MEDS ORDERED: CARBOHYDRATES FOR HYPOGLYCEMIA PO PRN (21:45)
[2020-10-15] MEDS ORDERED: GLUCOSE 10 TABS/TUBE PO PRN (21:45)
[2020-10-15] MEDS ORDERED: INSULIN GLARGINE SOLOSTAR 100 UNITS/ML 3 ML PEN SC ONE (21:45)
[2020-10-15] MEDS: NSS + 20MEQ KCL 20 MEQ/1,000 ML BAG IV SCH (21:55)
[2020-10-15] MEDS: ATORVASTATIN 20 MG TAB PO SCH (21:55)
[2020-10-15] MEDS: INSULIN ASPART 100 UNITS/ML 3 ML PEN SC SCH (21:57)
[2020-10-15] MEDS: HEPARIN SOD 5,000 UNIT/0.5 ML VIAL SQ SCH (21:58)
[2020-10-15] MEDS: ACETAMINOPHEN 325 MG TAB PO PRN (22:06)
[2020-10-16] MEDS ORDERED: INSULIN ASPART 100 UNITS/ML 3 ML PEN SC SCH (04:00)
[2020-10-16] MEDS: ACETAMINOPHEN 325 MG TAB PO PRN ×5 (05:06→23:20)
[2020-10-16] MEDS: HEPARIN SOD 5,000 UNIT/0.5 ML VIAL SQ SCH ×3 (05:51→21:25)
[2020-10-16] MEDS: NSS + 20MEQ KCL 20 MEQ/1,000 ML BAG IV SCH ×3 (06:20→21:25)
--- NOTE | 2020-10-16 06:34 | Electrocardiogram Report ---
Test Reason : Blood Pressure : / mmHG Vent. Rate : 098 BPM Atrial Rate : 098 BPM P-R Int : 144 ms QRS Dur : 088 ms QT Int : 352 ms P-R-T Axes : 042 006 008 degrees QTc Int : 449 ms Normal sinus rhythm Possible Left atrial enlargement Cannot rule out Anterior infarct , age undetermined Nonspecific ST abnormality Abnormal ECG No previous ECGs available Confirmed by Mac Thayer ([id number]) on 10/16/2020 6:34:26 AM Referred By: REFERRED SELF Confirmed By:Mac Thayer
[2020-10-16] MEDS ORDERED: PHARMACY GLYCEMIC MGMT CONSULT PRN (07:12)
[2020-10-16] MEDS: CHOLECALCIFEROL 1,000 UNITS 25 MCG TAB PO SCH (08:15)
[2020-10-16] MEDS: METOPROLOL SUCC 25MG EXT REL TAB PO SCH (08:15)
[2020-10-16] MEDS: INSULIN ASPART 100 UNITS/ML 3 ML PEN SC SCH ×4 (08:17→20:33)
[2020-10-16] MEDS ORDERED: FAMOTIDINE 20 MG TAB PO SCH (09:00)
[2020-10-16] MEDS ORDERED: INSULIN GLARGINE SOLOSTAR 100 UNITS/ML 3 ML PEN SC SCH (09:00)
[2020-10-16] MEDS ORDERED: Nursing to Pharmacy Communication SCH (10:00)
--- NOTE | 2020-10-16 10:13 | Pharmacy Report ---
Pharmacy Glycemic Short Note 2 - Date of Service October 16, 2020 - Glycemic Short BSG Results (Last 24 hours): 10/15/20 10/15/20 10/15/20 14:23 17:48 18:46 Glucose 334 H* POC Glucose 281 H 228 H 10/15/20 10/16/20 10/16/20 21:42 04:14 07:59 Glucose POC Glucose 212 H 207 H 236 H OUTPATIENT ANTIDIABETIC REGIMEN: * metformin * A1c - pending ASSESSMENT: * 70 year old with possible UTI, hyperglycemia and fever x 4 days. Per notes, reports BSGs in the 400s. Last A1c 6.9% in 05/2020 * Pharmacy consulted for glycemic management. BSGs on arrival in the 300s, received IV insulin and trending down to 200s * Received 23 units of insulin yesterday, of which 14 units were basal. Fasting BSG elevated at 236 mg/dL, plan to give additional basal this AM and add scale for HS. Hyperglycemia likely related to infection. No steroids ordered currently. PLAN FOR INPATIENT GLYCEMIC CONTROL: * Hold outpatient oral diabetes medications * Basal insulin * Lantus 14 units this AM * Lantus 8-14 units BID * Bolus insulin * NovoLog per scale ACHS or Q6hrs while NPO * Goal Range: Low 120 mg/dL - High 150 mg/dL * Correction Factor: 25 mg/dL/unit * Nutritional / Prandial insulin per carb ratio of 1 unit per 9 grams CHO consumed PLAN FOR DISCHARGE: * tbd
[2020-10-16] MEDS: cefTRIAXone SODIUM 2,000 MG in DEXTROSE 5% 50 ML IV SCH (16:00)
--- NOTE | 2020-10-16 17:13 | Hospitalist Progress Note ---
Date of Service October 16, 2020 Assessment & Plan (1) Hyperglycemia: (2) DM type 2 (diabetes mellitus, type 2): Present on admission with elevated BS above 400 Anion gap normal on admission Received IV insulin in the ER Hba1c pending On lantus and novolog sliding scale Pharmacy on board for glycemic management Continue monitor BS (3) Acute UTI (urinary tract infection): Urine cx positive for gram negative baccili Continue IV rocephin Will follow up urine sentivity (4) JAMES (acute kidney injury): Creatinine 1.3 on admission with Baseline ~0.7 Mostly due to dehydration KUB showed no evidence of hydronephrosis. Renal u/s showed kidneys are normal in size. There is mild fullness of the right ureter without hydronephrosis. Continue IVF (5) Elevated d-dimer: Mostly due to acute illness D-dimer 3000 CTA chest negative for PE Doppler of LE showed no PE (6) Hypokalemia: K+ 3.1 on admission Replace, follow electrolytes Continue monitor BMP (7) HTN (hypertension): BP controlled Continue metoprolol (8) KELLI (obstructive sleep apnea): CPAP as per home settings (9) DVT prophylaxis: SQ heparin Admission and Anticipated Discharge Date Admission Date: October 15, 2020 Subjective Pt was seen and examined for follow up of hyperglycemia Lying in bed with no distress watching TV Pt said that she feels much better She denies any chest pain, palpitation, dizziness and SOB Physical Exam Physical Exam: General- No acute distress Head- atraumatic Eyes- PERRL, EOMI, ENT- oropharynx clear Neck- supple, no JVD Lungs- clear to auscultation Heart- regular rhythm; no murmur Abdomen- normal bowel sounds, soft, nontender Extremities- no calf tenderness Neuro- alert, oriented x 3; PERRL, EOMI; no facial palsy; no dysarthria Skin- warm & dry Results & Data Results & Data ([facility]) Vital Signs (Past 12 Hours) Vital Signs Temp Pulse Pulse Resp BP Pulse Ox 10/16/20 15:02 38.1 C H 91 H 20 131/77 91 10/16/20 14:44 38.1 C H 10/16/20 13:42 38.3 C H 10/16/20 11:12 36.9 C 82 18 113/71 92 10/16/20 07:42 36.8 C 86 20 110/67 91 10/16/20 07:03 83
[2020-10-16] MEDS: FAMOTIDINE 20 MG TAB PO SCH (20:32)
[2020-10-16] MEDS: ATORVASTATIN 20 MG TAB PO SCH (20:32)
[2020-10-16] MEDS: INSULIN GLARGINE SOLOSTAR 100 UNITS/ML 3 ML PEN SC SCH (20:32)
[2020-10-17] MEDS: ACETAMINOPHEN 325 MG TAB PO PRN ×4 (04:28→18:39)
[2020-10-17] MEDS: NSS + 20MEQ KCL 20 MEQ/1,000 ML BAG IV SCH (05:29)
[2020-10-17] MEDS: HEPARIN SOD 5,000 UNIT/0.5 ML VIAL SQ SCH ×3 (05:52→20:45)
[2020-10-17 06:13] LABS: Estimated Average Glucose 194 mg/dl; Hemoglobin A1C 8.4 % (4.5-5.6)
[2020-10-17] MEDS: CHOLECALCIFEROL 1,000 UNITS 25 MCG TAB PO SCH (07:38)
[2020-10-17] MEDS: METOPROLOL SUCC 25MG EXT REL TAB PO SCH (07:38)
[2020-10-17 08:46] LABS: BUN Creatinine Ratio 17.4 (10-20); Calcium 8.9 mg/dl (8.5-10.1); Creatinine Clr Calc Pharmacy 71.9 ml/min; Est GFR (African American) 91.5; Est GFR (Non-African American) 78.9; Potassium 3.3 mmol/L (3.5-5.1)
[2020-10-17] MEDS: INSULIN ASPART 100 UNITS/ML 3 ML PEN SC SCH ×4 (09:04→20:45)
[2020-10-17] MEDS: INSULIN GLARGINE SOLOSTAR 100 UNITS/ML 3 ML PEN SC SCH (09:05)
[2020-10-17] MEDS ORDERED: POTASSIUM CHLORIDE 10 MEQ TABCR PO STA (10:21)
[2020-10-17] MEDS: MAGNESIUM OXIDE 400 MG TAB PO SCH (12:04)
--- NOTE | 2020-10-17 15:10 | Pharmacy Report ---
Pharmacy Glycemic Short Note 2 - Date of Service October 17, 2020 - Glycemic Short BSG Results (Last 24 hours): 10/16/20 10/16/20 10/17/20 16:21 20:19 07:30 Glucose POC Glucose 161 H 124 H 135 H 10/17/20 10/17/20 10/17/20 07:55 11:51 13:14 Glucose 122 H POC Glucose 170 H 153 H OUTPATIENT ANTIDIABETIC REGIMEN: * metformin * A1c - 8.4% ASSESSMENT: 10/17: * Patient received total of 36 units of insulin yesterday, of which 14 were basal insulin * Fasting BSG this AM 135 mg/dL - will continue with basal scale for this AM, reduce scale for HS * Continue same CF/CR 10/16: * 70 year old with possible UTI, hyperglycemia and fever x 4 days. Per notes, reports BSGs in the 400s. Last A1c 6.9% in 05/2020 * Pharmacy consulted for glycemic management. BSGs on arrival in the 300s, received IV insulin and trending down to 200s * Received 23 units of insulin yesterday, of which 14 units were basal. Fasting BSG elevated at 236 mg/dL, plan to give additional basal this AM and add scale for HS. Hyperglycemia likely related to infection. No steroids ordered currently. PLAN FOR INPATIENT GLYCEMIC CONTROL: * Hold outpatient oral diabetes medications * Basal insulin * Lantus 8 units x 1 today * Lantus 0-5 units HS * Bolus insulin * NovoLog per scale ACHS or Q6hrs while NPO * Goal Range: Low 120 mg/dL - High 150 mg/dL * Correction Factor: 25 mg/dL/unit * Nutritional / Prandial insulin per carb ratio of 1 unit per 9 grams CHO consumed PLAN FOR DISCHARGE: * A1c is 8.4% on admission - goal closer to ~7% * Per notes, patient with hyperglycemia and fever last couple of days prior to admission. Likely related to infection (UTI on admission) * Previous A1c 6.9% 05/2020 per provider notes. Per DM educator notes patient self monitors BSGs and typically in 200s. Patient reporting taking glucosamine outpatient and noticing increase in BSGs. I am not able to find data to suggest that glucosamine affects blood sugar level. * Scr improving on admission, okay to resume metformin on discharge - could consider titrating up dosing of metformin on discharge to 850 mg bid * For A1c 8-10% --> dual combination therapy typically recommended (metformin + GLP-1, DPP-4 etc). Insurance coverage would likely determine additional agent choice. If increasing metformin on discharge, likely could defer additional agent to PCP on discharge. * Would recommend continued self monitoring of BSGs at home, would recommend patient follows up with provider if BSGs persistently >200s
--- NOTE | 2020-10-17 16:19 | Hospitalist Progress Note ---
Date of Service October 17, 2020 Assessment & Plan (1) Hyperglycemia: (2) DM type 2 (diabetes mellitus, type 2): Present on admission with elevated BS above 400 Anion gap normal on admission Received IV insulin in the ER Hba1c 8.4 today On lantus and novolog sliding scale Pharmacy on board for glycemic management case discussed with pharmacy about medication on discharge btw oral DM vs Insulin Pt said that she will prefer oral DM Continue monitor BS (3) Acute UTI (urinary tract infection): Urine cx positive for gram negative baccili - ECOLI On IV rocephin, Constantino transition to PO on discharge Keflex on discharge (4) JAMES (acute kidney injury): Creatinine 1.3 on admission with Baseline ~0.7 Mostly due to dehydration KUB showed no evidence of hydronephrosis. Renal u/s showed kidneys are normal in size. There is mild fullness of the right ureter without hydronephrosis. Will d/c IVF Creatinine 0.7 today (5) Elevated d-dimer: Mostly due to acute illness D-dimer 3000 CTA chest negative for PE Doppler of LE showed no PE (6) Hypokalemia: K+ 3.1 on admission Potassium 3.3 today, K replaced Continue monitor BMP (7) HTN (hypertension): BP controlled Continue metoprolol (8) KELLI (obstructive sleep apnea): CPAP as per home settings (9) DVT prophylaxis: SQ heparin Disposition Plan to discharge home tomorrow Admission and Anticipated Discharge Date Admission Date: October 15, 2020 Subjective Pt was seen and examined for follow up of hyperglycemia Lying in bed with no distress watching TV Pt said that she had chills last night She said that her urine is getting more clear She said that she is not back yet to her baseline She denies any chest pain, palpitation, dizziness and SOB Physical Exam Physical Exam: General- No acute distress Head- atraumatic Eyes- PERRL, EOMI, ENT- oropharynx clear Neck- supple, no JVD Lungs- clear to auscultation Heart- regular rhythm; no murmur Abdomen- normal bowel sounds, soft, nontender Extremities- no calf tenderness Neuro- alert, oriented x 3; PERRL, EOMI; no facial palsy; no dysarthria Skin- warm & dry Results & Data Results & Data ([facility]) Vital Signs (Past 12 Hours) Vital Signs Temp Pulse Resp BP Pulse Ox 10/17/20 11:50 37.0 C 83 18 145/75 H 91 10/17/20 10:29 36.4 C L 84 18 132/77 90 10/17/20 08:06 36.4 C L 84 18 132/77 90
[2020-10-17] MEDS: cefTRIAXone SODIUM 2,000 MG in DEXTROSE 5% 50 ML IV SCH (16:31)
[2020-10-17] MEDS: ATORVASTATIN 20 MG TAB PO SCH (20:44)
[2020-10-17] MEDS: FAMOTIDINE 20 MG TAB PO SCH (20:44)
[2020-10-17] MEDS ORDERED: INSULIN GLARGINE SOLOSTAR 100 UNITS/ML 3 ML PEN SC SCH (21:00)
[2020-10-18] MEDS: ACETAMINOPHEN 325 MG TAB PO PRN ×4 (00:03→15:01)
[2020-10-18] MEDS: HEPARIN SOD 5,000 UNIT/0.5 ML VIAL SQ SCH ×2 (06:05→13:19)
--- NOTE | 2020-10-18 08:52 | Pharmacy Report ---
Pharmacy Glycemic Short Note 2 - Date of Service October 18, 2020 - Glycemic Short BSG Results (Last 24 hours): 10/17/20 10/17/20 10/17/20 07:55 11:51 13:14 Glucose 122 H POC Glucose 170 H 153 H 10/17/20 10/17/20 10/18/20 16:36 20:39 07:28 Glucose POC Glucose 125 H 124 H 120 H OUTPATIENT ANTIDIABETIC REGIMEN: * Metformin 500 mg PO BIDM * A1c - 8.4% (10/16/20) ASSESSMENT: 10/18: * Rajani received a total of 13 units of insulin yesterday * 8 units basal + 5 units bolus * BSGs were controlled: [phone] mg/dL * Fasting BSG this AM was well controlled at 120 mg/dL * No changes to insulin regimen at this time 10/17: * Patient received total of 36 units of insulin yesterday, of which 14 were basal insulin * Fasting BSG this AM 135 mg/dL - will continue with basal scale for this AM, reduce scale for HS * Continue same CF/CR 10/16: * 70 year old with possible UTI, hyperglycemia and fever x 4 days. Per notes, reports BSGs in the 400s. Last A1c 6.9% in 05/2020 * Pharmacy consulted for glycemic management. BSGs on arrival in the 300s, received IV insulin and trending down to 200s * Received 23 units of insulin yesterday, of which 14 units were basal. Fasting BSG elevated at 236 mg/dL, plan to give additional basal this AM and add scale for HS. Hyperglycemia likely related to infection. No steroids ordered currently. PLAN FOR INPATIENT GLYCEMIC CONTROL: * Hold outpatient oral diabetes medications * Basal insulin - no change * Lantus 8 units x 1 today * Lantus 0-5 units HS * Bolus insulin - tightened goal range * NovoLog per scale ACHS or Q6hrs while NPO * Goal Range: Low 110 mg/dL - High 140 mg/dL * Correction Factor: 25 mg/dL/unit * Nutritional / Prandial insulin per carb ratio of 1 unit per 9 grams CHO consumed PLAN FOR DISCHARGE: * A1c is 8.4% on admission - goal closer to ~7.5% * Per notes, patient with hyperglycemia and fever last couple of days prior to admission. Likely related to infection (UTI on admission) * Previous A1c 6.9% 05/2020 per provider notes. Per DM educator notes patient self monitors BSGs and typically in 200s. Patient reporting taking glucosamine outpatient and noticing increase in BSGs. I am not able to find data to suggest that glucosamine affects blood sugar level. * Scr improving on admission, okay to resume metformin on discharge - recommend titrating Metformin upward by 500 mg per week until goal dose of 1000 mg PO BIDM is reached. Long-term Metformin use may require Vitamin B12 britton pplementation so would recommend outpatient labs to check folate and B12 levels. * For A1c 8-10% --> dual combination therapy typically recommended (metformin + GLP-1, DPP-4 etc). Insurance coverage would likely determine additional agent choice. If increasing metformin on discharge, likely could defer additional agent to PCP on discharge. * Would recommend continued self monitoring of BSGs at home, would recommend patient follows up with provider if BSGs persistently >200s
[2020-10-18] MEDS: INSULIN ASPART 100 UNITS/ML 3 ML PEN SC SCH ×3 (08:55→17:09)
[2020-10-18] MEDS: MAGNESIUM OXIDE 400 MG TAB PO SCH (08:57)
[2020-10-18] MEDS: METOPROLOL SUCC 25MG EXT REL TAB PO SCH (08:58)
[2020-10-18] MEDS: CHOLECALCIFEROL 1,000 UNITS 25 MCG TAB PO SCH (08:58)
[2020-10-18] MEDS ORDERED: INSULIN GLARGINE SOLOSTAR 100 UNITS/ML 3 ML PEN SC SCH (09:00)
[2020-10-18 09:42] LABS: BUN Creatinine Ratio 17.5 (10-20); Calcium 9.3 mg/dl (8.5-10.1); Creatinine Clr Calc Pharmacy 74.9 ml/min; Est GFR (Non-African American) 82.9; Potassium 3.3 mmol/L (3.5-5.1)
[2020-10-18] MEDS ORDERED: POTASSIUM CHLORIDE CRTAB 20 MEQ TABCR PO ONE (10:15)
--- NOTE | 2020-10-18 10:41 | Hospitalist Progress Note ---
Date of Service October 18, 2020 Assessment & Plan (1) Hyperglycemia: (2) DM type 2 (diabetes mellitus, type 2): Present on admission with elevated BS above 400 Anion gap normal on admission Received IV insulin in the ER Hba1c 8.4 (10/17/20) On lantus and novolog sliding scale Pharmacy on board for glycemic management case discussed with pharmacy about medication on discharge btw oral DM vs Insulin Pt said that she will prefer oral DM Pharmacy recommended to titrate Metformin on discharge by 500mg weekly for 1000mg BID If BS not at goal, PCP can consider to add another oral agent Continue monitor BS (3) Acute UTI (urinary tract infection): Urine cx positive for gram negative baccili - ECOLI On IV rocephin, Will transition to PO keflex on discharge to complete 7 days course (4) JAMES (acute kidney injury): Creatinine 1.3 on admission with Baseline ~0.7 Mostly due to dehydration KUB showed no evidence of hydronephrosis. Renal u/s showed kidneys are normal in size. There is mild fullness of the right ureter without hydronephrosis. Will d/c IVF Creatinine 0.7 today Resolved (5) Elevated d-dimer: Mostly due to acute illness D-dimer 3000 CTA chest negative for PE Doppler of LE showed no PE (6) Hypokalemia: K+ 3.1 on admission Potassium 3.3 today, K replaced Will discharge on a low K supplement Check BMP in 1 week (7) HTN (hypertension): BP controlled Continue metoprolol (8) KELLI (obstructive sleep apnea): CPAP as per home settings (9) DVT prophylaxis: SQ heparin Disposition Plan to discharge home today Follow up with your primary care provider in 1 week Check BMP in 1 week Admission and Anticipated Discharge Date Admission Date: October 15, 2020 Subjective Pt was seen and examined for follow up of hyperglycemia and UTI Sitting in bed with no distress talking on the phone with no distress Pt said that she feels much better today She said that she walked around with no distress Denies any chest pain, palpitation, dizziness and SOB Physical Exam Physical Exam: General- No acute distress Head- atraumatic Eyes- PERRL, EOMI, ENT- oropharynx clear Neck- supple, no JVD Lungs- clear to auscultation Heart- regular rhythm; no murmur Abdomen- normal bowel sounds, soft, nontender Extremities- no calf tenderness Neuro- alert, oriented x 3; PERRL, EOMI; no facial palsy; no dysarthria Skin- warm & dry Results & Data Results & Data ([facility]) Vital Signs (Past 12 Hours) Vital Signs Temp Pulse Pulse Resp BP Pulse Ox 10/18/20 07:26 82 10/18/20 07:12 36.8 C 69 18 124/62 96 10/18/20 04:01 36.7 C 74 18 110/66 93 10/18/20 03:35 78 16 95 10/17/20 23:21 36.3 C L 76 18 109/65 90
[2020-10-18] MEDS: cefTRIAXone SODIUM 2,000 MG in DEXTROSE 5% 50 ML IV SCH (13:34)
--- NOTE | 2020-10-20 23:47 | Discharge Summary ---
Date of Service October 18, 2020 Admission HPI Per Admitting Provider 70-year-old female with PMH DM type II, KELLI on CPAP, HTN, and other problems listed below who presents to the ED for evaluation of hyperglycemia and fever. Patient reports over the past few days, her blood sugars have been running over 400 which are very unusual for her. She also reports having a fever for the past few days as well, reports a temperature of 101 today. About 1 week ago, patient reports right lower quadrant abdominal pain that wraps around to her back. She reports she took 1 dose of Tylenol which resolved the pain and it has not returned. She notes her urine has been darker in color however denies any dysuria or hematuria. She reports she has been very thirsty. She reports a poor appetite however no nausea, vomiting, abdominal pain, diarrhea. Denies chest pain shortness of breath. No lightheadedness, dizziness, diaphoresis, syncopal events. In the ED, glucose is 334 without signs of DKA. UA suggest UTI. D-dimer was elevated however CTA chest was negative for PE. Patient was given IV ceftriaxone, 6 units IV insulin, p.o. potassium, IVF. Admission Exam Per Admitting Provider Constitutional: WD/WN, vitals as above Eyes: PERRL, conjunctivae normal, anicteric sclerae ENMT: external ear and nose normal, oropharynx normal Respiratory: normal respiratory effort, lungs clear to auscultation Cardiovascular: Rate/Rhythm: regular rate and + tachycardic Vessels: normal peripheral pulses Extremities: no edema Gastrointestinal (Abdomen): normal bowel sounds, soft, nontender, no hepatosplenomegaly Musculoskeletal: no cyanosis or clubbing, extremities motor strength 5/5 Skin: no rashes, warm and dry Neurologic: PERRL, EOMI, accommodation nl, no face palsy, no dysarthria Psychiatric: A+Ox3, euthymic affect Genitourinary: no CVA tenderness Principal Diagnosis (1) Hyperglycemia: (2) DM type 2 (diabetes mellitus, type 2): (3) Acute UTI (urinary tract infection): (4) JAMES (acute kidney injury): (5) Elevated d-dimer (6) Hypokalemia: (7) HTN (hypertension): (8) KELLI (obstructive sleep apnea): Discharge Exam General- No acute distress Head- atraumatic Eyes- PERRL, EOMI, ENT- oropharynx clear Neck- supple, no JVD Lungs- clear to auscultation Heart- regular rhythm; no murmur Abdomen- normal bowel sounds, soft, nontender Extremities- no calf tenderness Neuro- alert, oriented x 3; PERRL, EOMI; no facial palsy; no dysarthria Skin- warm & dry Discharge Data Allergies Allergy/AdvReac Type Severity Reaction Status Date / Time aspirin Allergy Severe HALLUCINATI Unverified 10/15/20 14:56 ONS naloxone Allergy Severe HALLUCINATI Verified 10/15/20 14:56 ONS pentazocine Allergy Severe HEADACHE Unverified 10/15/20 14:56 SODIUM BREVATOL Allergy Intermediate MIGRAINES Uncoded 10/15/20 14:56 AND VISUAL DISTURBANCES Consultations 10/15/20 17:57 ED Decision to Admit Stat Ordered Studies 10/15/20 15:11 CT angio chest PE protocol Stat 10/15/20 19:06 US renal/blad retro comp Stat US venous doppler LE BI Stat ULTRASOUND BILATERAL LOWER EXTREMITY VENOUS CLINICAL HISTORY: Elevated d-dimer. COMPARISON STUDY: No priors. TECHNIQUE: Real-time, grayscale, and color Doppler sonography of the deep veins of the right and left lower extremity was performed from the inguinal crease to the calf. Compression and augmentation were utilized. FINDINGS: There is no sonographic evidence of deep venous thrombosis identified in the right or left lower extremity. The common femoral, superficial femoral, and popliteal veins are patent and normally compressible bilaterally. The greater saphenous vein and the profunda femoris vein at the junction with the common femoral vein are clear in both legs. The visualized calf veins are patent bilaterally. IMPRESSION: There is no sonographic evidence of deep venous thrombosis identified in the right or left lower extremity. ACT 112: Negative or not required by law. Electronically signed by: Rios Gutierrez M.D. 10/15/2020 8:40 PM Dictated: 10/15/202039Transcribed: 10/15/202039 ULTRASOUND BILATERAL LOWER EXTREMITY VENOUS CLINICAL HISTORY: Elevated d-dimer. COMPARISON STUDY: No priors. TECHNIQUE: Real-time, grayscale, and color Doppler sonography of the deep veins of the right and left lower extremity was performed from the inguinal crease to the calf. Compression and augmentation were utilized. FINDINGS: There is no sonographic evidence of deep venous thrombosis identified in the right or left lower extremity. The common femoral, superficial femoral, and popliteal veins are patent and normally compressible bilaterally. The greater saphenous vein and the profunda femoris vein at the junction with the common femoral vein are clear in both legs. The visualized calf veins are patent bilaterally. IMPRESSION: There is no sonographic evidence of deep venous thrombosis sakina ntified in the right or left lower extremity. ACT 112: Negative or not required by law. Electronically signed by: Rios Gutierrez M.D. 10/15/2020 8:40 PM Dictated: 10/15/202039Transcribed: 10/15/202039 ULTRASOUND BILATERAL LOWER EXTREMITY VENOUS CLINICAL HISTORY: Elevated d-dimer. COMPARISON STUDY: No priors. TECHNIQUE: Real-time, grayscale, and color Doppler sonography of the deep veins of the right and left lower extremity was performed from the inguinal crease to the calf. Compression and augmentation were utilized. FINDINGS: There is no sonographic evidence of deep venous thrombosis identified in the right or left lower extremity. The common femoral, superficial femoral, and popliteal veins are patent and normally compressible bilaterally. The greater saphenous vein and the profunda femoris vein at the junction with the common femoral vein are clear in both legs. The visualized calf veins are patent bilaterally. IMPRESSION: There is no sonographic evidence of deep venous thrombosis identified in the right or left lower extremity. ACT 112: Negative or not required by law. Electronically signed by: Rios Gutierrez M.D. 10/15/2020 8:40 PM Dictated: 10/15/202039Transcribed: 10/15/202039 ULTRASOUND KIDNEYS AND BLADDER CLINICAL HISTORY: Flank pain. COMPARISON STUDY: Abdominal radiograph dated 10/15/2020. TECHNIQUE: Real-time, grayscale, and color flow sonography of the kidneys and bladder is performed. Images are reviewed in the transverse and longitudinal planes. FINDINGS: Kidneys: The kidneys are normal in size and echotexture. The right kidney measures 13.4 cm in length and the left kidney measures 11.0 cm in length. There is mild fullness of the right ureter without hydronephrosis. No shadowing renal calculi are identified. There is no sonographic evidence of contour deforming renal mass lesion. No perinephric fluid is identified. Bladder: The bladder is normal in appearance. Bilateral ureteral jets were seen. There is no significant post void residual. Upper abdomen: Survey images of the liver show evidence of hepatic steatosis. IMPRESSION: 1. The kidneys are normal in size. 2. There is mild fullness of the right ureter without hydronephrosis. 3. Both ureteral jets were identified. ACT 112: Negative or not required by law. Electronically signed by: Rios Gutierrez M.D. 10/15/2020 8:46 PM Dictated: 10/15/202043Transcribed: 10/15/202043 KUB CLINICAL HISTORY: Flank pain. FINDINGS: 2 AP supine abdominal radiographs are obtained. No prior studies are available for comparison at the time of dictation. Cholecystectomy clips are seen in the right upper quadrant. There is no bowel obstruction. Excreted IV contrast fills the renal collecting systems and bladder. There is no evidence of hydronephrosis. The skeletal structures are osteopenic and appear intact. Spondylotic changes noted in the lumbar spine. IMPRESSION: 1. Excreted IV contrast fills the renal collecting systems and bladder. The presence of renal calculi cannot be assessed. 2. There is no evidence of hydronephrosis. 3. Nonobstructed bowel gas pattern. Electronically signed by: Rios Gutierrez M.D. 10/15/2020 7:34 PM Dictated: 10/15/201931Transcribed: 10/15/201931 CT ANGIOGRAM OF THE CHEST CLINICAL HISTORY: Cough and dyspnea of several months duration. History of Covid in August 2020. COMPARISON STUDY: Chest x-ray dated 10/15/2020. TECHNIQUE: Following the IV administration of 120 cc of Optiray 320, CT angiogram of the chest was performed from the upper abdomen to the thoracic inlet utilizing the pulmonary embolus protocol. Images are reviewed in the axial, sagittal, and coronal planes. 3-D MIPS images are created and assessed. IV contrast was administered without complication. A dose lowering technique was utilized adhering to the principles of ALARA. CT DOSE: 427.67 mGy.cm FINDINGS: Thyroid: Imaged portions of the thyroid gland are normal in size and attenuation. Thoracic aorta: The thoracic aorta is normal in caliber and demonstrates standard 3-vessel arch anatomy. No dissection is seen. Pulmonary vasculature: The pulmonary trunk is normal in caliber. There are no filling defects identified in main, lobar, or segmental pulmonary branches to suggest pulmonary embolus. Heart: The heart is normal in size and without pericardial effusion. Lungs and pleural spaces: Evaluation of the lung parenchyma is modestly degraded by motion artifact. The trachea and central airways are clear. There are trace pleural effusions. Foci of subpleural parenchymal scarring and atelectasis are present at both lung bases. There is no airspace consolidation typical for pneumonia. Tiny blebs are noted at the right apex. Mild diffuse peribronchial thickening is noted. Mediastinum: There is no mediastinal lymphadenopathy. Feli: Clear. Axillae: There is no axillary lymphadenopathy. Upper abdomen: There is a moderate to large hiatal hernia. The liver appears steatotic. Skeletal structures: The skeletal structures are osteopenic. Degenerative change and mild hyperkyphosis is noted in the thoracic spine. No lytic or blastic bony lesions are seen. IMPRESSION: 1. There is no evidence of pulmonary embolus in the main, lobar, or segmental pulmonary arteries. 2. There is no airspace consolidation typical for pneumonia. 3. Foci of subpleural parenchymal scarring and atelectasis are seen at the lung bases. This may represent post infectious/inflammatory change. Consider nonemergent pulmonology follow-up. 4. Trace pleural effusions. 5. Mild diffuse peribronchial thickening suggests bronchitis/reactive airway disease. 6. Moderate to large hiatal hernia. 7. Additional findings as above. ACT 112: Negative or not required by law. Electronically signed by: Rios Gutierrez M.D. 10/15/2020 5:22 PM Dictated: 10/15/201716Transcribed: 10/15/201716 SINGLE VIEW CHEST CLINICAL HISTORY: Dyspnea. FINDINGS: An AP, portable, upright chest radiograph is obtained. No prior studies are available for comparison at the time of dictation. The cardiomediastinal silhouette is unremarkable noting atherosclerotic calcification of the thoracic aorta. There is bibasilar scarring/atelectasis. No airspace consolidation or large pleural effusion is identified. No pneumothorax is seen. The skeletal structures are osteopenic. The bony thorax is grossly intact. Degenerative change and widening is seen at the left acromioclavicular joint. IMPRESSION: No acute cardiopulmonary abnormality. ACT 112: Negative or not required by law. Electronically signed by: Rios Gutierrez M.D. 10/15/2020 2:19 PM Dictated: 10/15/20 1418Transcribed: 10/15/20 1418 Hospital Course (1) Hyperglycemia: (2) DM type 2 (diabetes mellitus, type 2): Present on admission with elevated BS above 400 Anion gap normal on admission Received IV insulin in the ER Hba1c 8.4 (10/17/20) On lantus and novolog sliding scale Pharmacy on board for glycemic management case discussed with pharmacy about medication on discharge btw oral DM vs Insulin Pt said that she will prefer oral DM Pharmacy recommended to titrate Metformin on discharge by 500mg weekly for 1000mg BID If BS not at goal, PCP can consider to add another oral agent Continue monitor BS (3) Acute UTI (urinary tract infection): Urine cx positive for gram negative baccili - ECOLI On IV rocephin, Will transition to PO keflex on discharge to complete 7 days course (4) JAMES (acute kidney injury): Creatinine 1.3 on admission with Baseline ~0.7 Mostly due to dehydration KUB showed no evidence of hydronephrosis. Renal u/s showed kidneys are normal in size. There is mild fullness of the right ureter without hydronephrosis. Will d/c IVF Creatinine 0.7 today Resolved (5) Elevated d-dimer: Mostly due to acute illness D-dimer 3000 CTA chest negative for PE Doppler of LE showed no PE (6) Hypokalemia: K+ 3.1 on admission Potassium 3.3 today, K replaced Will discharge on a low K supplement Check BMP in 1 week (7) HTN (hypertension): BP controlled Continue metoprolol (8) KELLI (obstructive sleep apnea): CPAP as per home settings (9) DVT prophylaxis: SQ heparin Disposition Plan to discharge home today Follow up with your primary care provider in 1 week Check BMP in 1 week Total Time Total Time Spent Total Time Spent (In Minutes): 35 minutes Total Time Includes: Examination of the Patient, Discharge Planning, Medication Reconciliation, Communication With Other Providers and Other Discharge Plan Discharge Items Patient Disposition: Home - Self-Care Reason For Visit: UTI, HYPERGLYCEMIA Discharge Diagnosis: (1) Hyperglycemia: (2) DM type 2 (diabetes mellitus, type 2): (3) Acute UTI (urinary tract infection): (4) JAMES (acute kidney injury): (5) Elevated d-dimer (6) Hypokalemia: (7) HTN (hypertension): (8) KELLI (obstructive sleep apnea): Activity: Resume your previous activity Non-emergency contact: Primary Care Provider Call non-emergency contact if: you have any medication questions and your temperature is above 101 Follow-up/Referrals: Ismael Warner DO [Primary Care Provider] - (Date & Time 10/20/2020 11:20 AM Provider Ismael Warner DO Department General Internal Medicine [facility] ) Diet: Carb Consistent or DM2 Addtl Attending Provider Instructions: Follow up with your primary care provider dr. Warner on 10/20/2020 at 11:20 AM Continue monitor your blood sugar and bring your blood sugar log at your next appointment with your provider Check BMP in 1 week to monitor your electrolytes and kidney function Titrate metformin by 500mg weekly to reach 1000mg twice a day Complete the course of the antibiotic with Keflex Pending Studies at Discharge: No Stand-Alone Forms: My [employer], Smoking Cessation Medications and DC Order Prescriptions: New potassium chloride 10 mEq capsule, extended release 10 meq PO DAILY Qty: 30 RF: 0 cephalexin 500 mg capsule 500 mg PO BID 4 Days Qty: 8 RF: 0 Continued metoprolol succinate 25 mg tablet extended release 24 hr 25 mg PO DAILY RF: 0 atorvastatin 20 mg tablet 20 mg PO HS RF: 0 acetaminophen [Tylenol Extra Strength] 500 mg Tablet 500 mg PO Q6H PRN (Reason: Fever Or Pain) RF: 0 famotidine 20 mg tablet 20 mg PO DAILY RF: 0 magnesium oxide 400 mg (241.3 mg magnesium) Tablet 400 mg PO DAILY PRN (Reason: Unknown) RF: 0 ibuprofen [Advil] 200 mg Tablet 400 mg PO Q6H PRN (Reason: Fever Or Pain) RF: 0 cholecalciferol (vitamin D3) 50 mcg (2,000 unit) Tablet 50 mcg PO DAILY RF: 0 Centrum Silver Women 8 mg iron-400 mcg-300 mcg Tablet 1 tab PO DAILY RF: 0 Changed metformin 500 mg tablet 1,000 mg PO BID 30 Days Qty: 120 RF: 0 Discontinued glucosamine sulfate [Glucosamine] 500 mg Tablet 500 mg PO BID RF: 0 Discharge Orders: Discharge Order (Routine); Ordered 10/18/20 Ordered By: Stephen March Admission Data Admit Date/Time: 10/15/20 18:44 Attending Provider: Stephen March Admit Provider: Stephen March Primary Care Provider: Ismael Warner Other Providers: Stephen March Other Interventions: Discharge Summary Assessment (RN) Last Done: 10/18/20 15:13
== END 2020-10-18 17:54 | disposition home or self-care (01) | DRG 690 ==
LOC: ED 13:53 → 2N 18:44